=== PATIENT | female | born 1975 | race Caucasian/White ===

== ENCOUNTER 2016-11-01 10:02 | Inpatient (IN) | payer BC ==
[~2016-11-01] VITALS: Ht 175.3 cm; Wt 69.4 kg
[~2016-11-01 10:02] MED LIST: ASPIR 8181 M1 PO; FOLIC ACID1 MG PO; LIBRIUM25 MG PO; THIAMINE HCL100 MG PO
[2016-11-01 11:11] LABS: EOSINOPHIL (%) 0.1 % (0-5); HEMATOCRIT 41.6 % (36.0-46.0); IMMATURE GRANULOCYTE (%) 0.4 % (0.0-0.7); IMMATURE GRANULOCYTE COUNT 0.1 K/uL; INSTRUMENT ABS NEUTROPHIL CT 12.7 K/uL; LYMPHOCYTE COUNT 1.6 K/uL (1.0-2.8); MCH 30.2 PG (29.0-34.0); MCHC 33.7 G/DL (30.0-36.0); MCV 89.7 FL (83-99); MEAN PLAT.VOLUME 9.8 uM^3 (9.5-12.4); MONOCYTE (%) 3.1 % (3-12); MONOCYTE COUNT 0.5 K/uL (0-0.8); NEUTROPHIL (%) 85.1 % (45-76); NEUTROPHIL COUNT 12.7 K/uL (1.8-6.4); PLATELET COUNT 340 K/uL (156-360); RBC DIS.WIDTH-SD 39.3 % (39-53); RED BLOOD COUNT 4.64 M/uL (3.80-5.20)
[2016-11-01 11:21] LABS: PROTHROMBIN TIME 10.1 (9.2-11.2)
[2016-11-01 11:25] LABS: CHLORIDE 103 mEq/L (99-109); POTASSIUM 3.5 mEq/L (3.7-5.4); SODIUM 141 mEq/L (136-147)
[2016-11-01 11:27] LABS: GLUCOSE 97 mg/dL (70-99)
[2016-11-01 11:28] LABS: ANION GAP 19 MEQ/L (2-14)
[2016-11-01 11:31] LABS: GFR ESTIMATE (CALCULATED) > 59 mL/min/; UREA NITROGEN (BUN) 16 mg/dL (9-23)
[2016-11-01 11:35] LABS: TROP-I INTERPRETATION NEGATIVE; TROPONIN-I < 0.01 ng/mL (0.0-0.30)
[2016-11-01] MEDS ORDERED: LOW DOSE ASPIRI81 M1 PO (12:04)
[2016-11-01 12:58] LABS: MAGNESIUM 1.8 mg/dL (1.3-2.7)
[2016-11-01 12:59] LABS: D-DIMER ELISA 0.22 mg/L FEU (< 0.57)
[2016-11-01 13:45] VITALS: BP 136/88
[2016-11-01 13:46] VITALS: BP 136/88
[2016-11-01 16:50] VITALS: BP 121/67
[2016-11-01 21:45] VITALS: BP 125/76
[2016-11-02 00:22] VITALS: BP 119/70
[2016-11-02 04:35] VITALS: BP 128/70
[2016-11-02 05:32] LABS: HDL CHOLESTEROL 47 MG/DL (Desirable>=50); LDL CHOLESTEROL 64 mg/dL (Desirable<100); NON-HDL CHOLESTEROL 81 mg/dL (Desirable<160); TOTAL CHOLESTEROL 128 mg/dL (Desirable<200); TRIGLYCERIDES 85 MG/DL (Normal: <150)
[2016-11-02 08:02] VITALS: BP 143/80
[2016-11-02 08:40] LABS: ADD MIUA? YES; BILIRUBIN NEGATIVE; BLOOD SMALL; COLOR COLORLESS ((YELLOW)); GLUCOSE (STRIP) NEGATIVE; KETONES 20; LEUKOCYTES NEGATIVE; NITRITE NEGATIVE; PROTEIN (STRIP) NEGATIVE; SPECIFIC GRAVITY 1.003 (1.000-1.030); UROBILINOGEN 0.2 MG/DL (0.2-1.0)
[2016-11-02 09:08] LABS: BACTERIA RARE /HPF; EPITHELIAL CELLS RARE /HPF; MUCUS NONE SEEN /LPF; WHITE BLOOD CELLS 0-5 /HPF (0-5)
[2016-11-02 09:26] LABS: MCH 29.7 PG (29.0-34.0); MCHC 32.4 G/DL (30.0-36.0); MCV 91.9 FL (83-99); RBC DIS.WIDTH-CV 12.3 % (11.8-14.6); RBC DIS.WIDTH-SD 41.4 % (39-53)
[2016-11-02 10:27] LABS: MEAN PLAT.VOLUME 10.2 uM^3 (9.5-12.4); PLAT.SUFFICIENCY ADEQUATE
[2016-11-02 10:28] LABS: PLATELET COUNT 234 K/uL (156-360)
[2016-11-02 10:54] LABS: ANION GAP 8 MEQ/L (2-14); CHLORIDE 106 MEQ/L (99-109); GFR ESTIMATE (CALCULATED) > 59 mL/min/; GLUCOSE 80 mg/dL (70-99); MAGNESIUM 1.8 mg/dl (1.3-2.7); POTASSIUM 4.1 MEQ/L (3.7-5.4); SODIUM 136 MEQ/L (136-147); UREA NITROGEN (BUN) 9 mg/dL (9-23)
[2016-11-02 12:19] VITALS: BP 132/92
[2016-11-02 17:06] VITALS: BP 132/91
[2016-11-02 20:30] VITALS: BP 128/89
[2016-11-03 00:25] VITALS: BP 132/77
[2016-11-03 05:42] VITALS: BP 127/80
[2016-11-03] MEDS ORDERED: FOLIC ACID1 MG PO (07:24)
[2016-11-03] MEDS ORDERED: Thiamine,Vitamin B1 PO (07:25)
[2016-11-03 08:38] VITALS: BP 146/84
== END 2016-11-03 10:54 | disposition home or self-care (01) | DRG 309 ==
LOC: EME 10:02 → EDOF 12:34 → 4EAST 12:34
PROVIDERS: Emergency Medicine; Hospitalist
DX: I48.0 Paroxysmal atrial fibrillation (principal); F10.10 Alcohol abuse, uncomplicated; R65.10 Systemic inflammatory response syndrome (SIRS) of non-infectious origin without acute organ dysfunction; E86.0 Dehydration; E87.2 Acidosis; E83.39 Other disorders of phosphorus metabolism
CPT/HCPCS: 71010; 80048; 80061; 81003; 83735; 84100; 84443; 84484; 85025; 85027; 85379; 85610; 85730; 93005; 99281; 99285; J1650; J3411; J7030; J7050

== ENCOUNTER 2017-09-27 08:48 | Emergency (ER) | payer BC ==
[~2017-09-27] VITALS: Ht 175.3 cm; Wt 69.9 kg
[~2017-09-27 08:48] MED LIST changes: +LOW DOSE ASPIRI81 M1 PO; +Thiamine,Vitamin B1 PO
[2017-09-27 09:30] LABS: HEMATOCRIT 38.2 % (36.0-46.0); HEMOGLOBIN 13.1 G/DL (11.9-15.5); MCH 30.6 PG (29.0-34.0); MCHC 34.3 G/DL (30.0-36.0); MCV 89.3 FL (83-99); PLATELET COUNT 326 K/uL (156-360); RBC DIS.WIDTH-CV 12.2 % (11.8-14.6); RBC DIS.WIDTH-SD 39.6 % (39-53); RED BLOOD COUNT 4.28 M/uL (3.80-5.20)
[2017-09-27 09:45] LABS: CHLORIDE 107 mEq/L (99-109); POTASSIUM 3.2 mEq/L (3.7-5.4); SODIUM 143 mEq/L (136-147)
[2017-09-27 09:47] LABS: GLUCOSE 91 mg/dL (70-99)
[2017-09-27 09:51] LABS: CREATININE 0.9 mg/dL (0.6-1.3); GFR ESTIMATE (CALCULATED) > 59 mL/min/
[2017-09-27 09:52] LABS: UREA NITROGEN (BUN) 7 mg/dL (9-23)
[2017-09-27 10:00] LABS: QUANTITATIVE HCG < 4.0 MIU/ML; TROP-I INTERPRETATION NEGATIVE; TROPONIN-I < 0.01 ng/mL (0.0-0.30)
[2017-09-27 11:10] VITALS: BP 142/92
== END 2017-09-27 11:11 | disposition home or self-care (01) ==
LOC: EME 08:48
PROVIDERS: Emergency Medicine
PROC: 5A2204Z Restoration of Cardiac Rhythm, Single (ICD-10-PCS; principal; 2017-09-27)
DX: I48.91 Unspecified atrial fibrillation (principal); Z79.82 Long term (current) use of aspirin
CPT/HCPCS: 80048; 84484; 84702; 85027; 93005; 99281; 99285